=== PATIENT | male | born 1985 | race Caucasian/White ===

== ENCOUNTER 2016-04-18 12:19 | Emergency (ER) | payer SELFPAY ==
--- NOTE | ~2016-04-18 | CT2 ---
[facility] A Service of [facility] RADIOLOGY TEXT RESULTS PATIENT: KASSY NOBLE LOCATION: [facility] : 83 UNIT #: [id number] AGE: [address]: Sp Camp MD SEX: M ORDER DR: [id number] [facility]. [place], [place] [address] [id number] MR#: [id number] Acc #: [id number] NAME: KASSY NOBLE : 1985 SEX: M STUDY DATE/TIME: 04/18/2016 14:34 UNIT: [facility] ROOM: STUDY DESCRIPTION: CT Abd and Pelv W Cont Attending Physician: Sp Camp M.D. Ordering Physician: Sp Camp M.D. Primary Care Physician: No Primary Care Physician MEDICAL IMAGING REPORT This report is preliminary unless electronic signature is present EXAM CT abdomen and pelvis with contrast 04/18/2016 INDICATIONS 30-year-old male with abdominal pain and diarrhea today. TECHNIQUE CT of the abdomen and pelvis was performed following the administration of oral and IV contrast. Coronal and sagittal reformatted images were obtained. This CT exam was performed with one or more of the following radiation dose reduction techniques: automatic exposure control, adjustment of mA and/or kV according to patient size, and iterative reconstruction. COMPARISON STUDIES No comparisons. FINDINGS CT ABDOMEN: There is a micronodule in the left lower lobe. If the patient has no risk factor for malignancy then this requires no further followup. If the patient does have a high risk factor for malignancy such as a significant smoking history then this can be followed at 1 year. There is a moderate sized hiatal hernia. The liver and gallbladder are unremarkable. The spleen is unremarkable. The kidneys are unremarkable. The adrenal glands are unremarkable. The pancreas is unremarkable. There is thickening involving a long segment of small bowel on the right side of the abdomen. This may reflect infectious or inflammatory bowel disease. The terminal ileum appears unremarkable. There is no evidence of bowel obstruction. CT PELVIS: The colon is unremarkable. The appendix is normal. No free fluid. The bone windows are unremarkable. [facility] A Service of [facility] & [facility] RADIOLOGY TEXT RESULTS PATIENT: KASSY NOBLE LOCATION: [facility] : 83 UNIT #: [id number] AGE: [address]: Sp Camp MD SEX: M ORDER DR: IMPRESSION There is a long segment of small bowel thickening on the right side of the abdomen. This may represent infectious or inflammatory bowel disease. Correlate clinically with patient history and symptoms. There is no evidence for bowel obstruction. There are no dilated loops of bowel. The terminal ileum is unremarkable. Dictated by... James Craig M.D. THIS IS AN ELECTRONICALLY VERIFIED REPORT James Craig M.D. at 04/19/2016 4:42 PM Jessica TD: 04/18/2016 18:05 JOB #: [id number] MEDICAL IMAGING REPORT COPY
[2016-04-18 12:41] LABS: BASOPHIL# 0.2 X10e3 (0-0.3); BASOPHIL% 1.2 % (0-2.5); EOSINOPHIL% 0.3 % (0.0-7.0); HEMOGLOBIN 16.3 gm/dL (13.0-16.0); LYMPHOCYTE# 0.5 X10e3 (1.0-3.5); LYMPHOCYTE% 3.9 % (17.0-45.0); MEAN CELL VOLUME 92.8 FL (83-96); MEAN CORPUSCULAR HEMOGLOBIN 31.6 PG (28-34); MEAN PLATELET VOLUME 6.8 FL (6.5-11.5); MONOCYTE# 1.4 X10e3 (0-1.0); MONOCYTE% 10.2 % (3.0-12.0); NEUTROPHIL# 11.6 X10e3 (1.5-7.1); NEUTROPHIL% 84.4 % (40-75); PLATELET COUNT 283 X10e3 (140-420); RED BLOOD COUNT 5.17 X10e (3.90-5.60); RED CELL DISTRIBUTION WIDTH 12.8 % (11.0-15.5); WHITE BLOOD COUNT 13.8 X10e3 (4.0-10.5)
[2016-04-18 12:42] LABS: DIFF IND NO
[2016-04-18 13:10] LABS: ALBUMIN SERUM 4.7 g/dL (3.5-5.0); ALKALINE PHOSPHATASE 69 U/L (32-92); ALT (SGPT) 36 U/L (10-40); AMYLASE 14 U/L (0-46); AST (SGOT) 33 U/L (10-42); BILIRUBIN, DIRECT 0.2 mg/dL (0.0-0.2); BILIRUBIN,INDIRECT 0.9 mg/dL (0.0-0.9); BILIRUBIN,TOTAL 1.1 mg/dL (0.2-2.0); BLOOD UREA NITROGEN 12 mg/dL (9-23); BUN/CREATININE RATIO 17.14; CALCIUM SERUM 9.4 mg/dL (8.4-10.2); CARBON DIOXIDE 27 mmol/L (22-31); CHLORIDE 101 mmol/L (100-111); CREATININE SERUM 0.7 mg/dL (0.6-1.4); GLOM FILT RATE Estimated ABOVE60 mL/min (>60); GLUCOSE FASTING 100 mg/dL (70-110); LIPASE 26 U/L (22-51); POTASSIUM 4.4 mmol/L (3.5-5.1); SODIUM 137 mmol/L (135-145)
== END 2016-04-18 15:45 | disposition home or self-care (01) ==
LOC: CED 12:19
PROVIDERS: Emergency Medicine
DX: K52.9 Noninfective gastroenteritis and colitis, unspecified (principal)
CPT/HCPCS: 36415; 74177; 80048; 80076; 82150; 83690; 85025; 96374; 96375; 99284; J2270; J2405; Q9967